=== PATIENT | male | born 1985 | race Caucasian/White ===

== ENCOUNTER 2022-02-08 10:04 | Emergency (ER) | payer MEDICAID ==
[~2022-02-08] VITALS: Ht 172.7 cm; Wt 107.0 kg
[2022-02-08 10:31] VITALS: BP 145/102
[2022-02-08] MEDS ORDERED: IBUP-2029 MT (11:32)
[2022-02-08] MEDS ORDERED: IBUPROFEN 600MG TABLET PO ONE (11:45)
[2022-02-08] MEDS ORDERED: ACETAMINOPHEN 325MG TABLET PO ONE (11:45)
== END 2022-02-08 12:11 | disposition home or self-care (01) ==
LOC: ER 10:04
DX: M25.562 Pain in left knee (principal); X50.1XXA Overexertion from prolonged static or awkward postures, initial encounter; Y93.01 Activity, walking, marching and hiking; Y92.9 Unspecified place or not applicable
CPT/HCPCS: 73562; 99283; L1830